=== PATIENT | female | born 1990 | race American Indian/Alaskan Native ===

== ENCOUNTER 2021-08-22 16:36 | Emergency (ER) | payer OTHER, SELFPAY ==
--- NOTE | 2021-08-22 | ECG_ITS ---
Test Reason : PALPITATIONS Blood Pressure : / mmHG Vent. Rate : 100 BPM Atrial Rate : 100 BPM P-R Int : 162 ms QRS Dur : 068 ms QT Int : 328 ms P-R-T Axes : 068 072 058 degrees QTc Int : 423 ms Normal sinus rhythm Possible Left atrial enlargement Borderline ECG No previous ECGs available Referred By: Generic ED Physician Electronically Signed By:Nik Lowery
[2021-08-22 16:40] VITALS: BP 142/88; PULSE 101; O2SAT 100
[2021-08-22 16:42] VITALS: BP 152/97; PULSE 104; RESP 20; O2SAT 100; BMI 25.8
[2021-08-22 17:27] LABS: COVID-19 Test Negative (Negative); IDNOW Serial# 55D5AD1C
--- NOTE | 2021-08-22 20:09 | ED_ITS ---
HPI - Anxiety General Chief Complaint: Anxiety Stated Complaint: PANIC ATTACK Time Seen by Provider: 08/22/21 20:08 Source: patient History of Present Illness HPI narrative: This is a 30-year-old male who woke up today after a nap and felt very anxious, felt like she could not breathe, had chest discomfort. She feels better now, no longer has any chest pain or shortness of breath. The patient admits heavy alcohol use last night. She had had a Coke this morning but denies any other heavy in use. This was about 2 hours prior to the onset of the anxiety symptoms. She has had similar attacks in the past and is scheduled to see her primary care physician, notes she will mention this to her primary care physician as she has had symptoms like this off and on for 3 years. She denies any acid reflux symptoms. She denies any new or unusual stress. She denies any vomiting or diarrhea Related Data Previous Rx's Medication Instructions Recorded lorazepam 1 mg tablet 1 mg PO BID PRN #14 tab 08/22/21 Allergies Allergy/AdvReac Type Severity Reaction Status Date / Time No Known Allergies Allergy Verified 08/22/21 20:13 Review of Systems Review of Systems: Yes all other systems are reviewed and are negative Constitutional: Constitutional: Reports as per HPI and Denies fever(s) Eyes: Eyes: Reports as per HPI and Reports no additional eye complaints ENT: Reports system reviewed and no additional complaints, except as documented, Reports as per HPI, Denies nasal congestion, Denies nasal discharge and Denies sore throat Cardiovascular: Cardiovascular: Reports as per HPI, Reports chest pain (Pressure, going to) and Reports dyspnea Respiratory: Respiratory: Reports as per HPI, Denies cough and Reports dyspnea Gastrointestinal: Gastrointestinal: Reports as per HPI, Denies abdominal pain, Denies diarrhea and Denies vomiting Genitourinary: Genitourinary: Reports as per HPI, Denies hematuria, Denies urinary frequency and Denies dysuria Musculoskeletal: Musculoskeletal: Reports no additional musculoskeletal complaints and Denies numbness Integumentary/Breasts: Skin/Breast: Reports as per HPI and Denies rash Neurologic: Denies numbness and Denies Sensory deficit (Neuro) Psychiatric: Psychiatric: Reports no additional psychiatric complaints and Reports as per HPI Endocrine: Endocrine: Reports no additional endocrine complaints and Reports as per HPI Hematologic/Lymphatic: Hematologic/Lymphatic: Reports no additional hematologic/lymphatic complaints, Reports as per HPI and Reports other (No peripheral edema) [facility] Past Medical History Medical History (Updated 08/22/21 @ 20:13 by Anastacio Mensah MD) No known health problems Social History Social History Advance Directives: No Advance Directives Information Provided: Yes Physical Exam Vital Signs: Vital Signs: Last Vital Signs Pulse 104 H 08/22/21 16:42 Resp 20 08/22/21 16:42 BP 152/97 H 08/22/21 16:42 Pulse Ox 100 08/22/21 16:42 BMI result Body Mass Index 25.8 Neuro: Sensory Exam: No Sensory deficit (Neuro) MDM - Anxiety MDM Narrative Medical decision making narrative: Patient with what sounds like panic attack symptoms today after waking up from nap. Patient has had this before. Patient had been drinking last night and had had a Coca-Cola this morning. She denies any other drug use. Patient had spontaneous resolution of symptoms with rest in the ED, prior to my evaluation. Patient had a normal exam and did not appear anxious when I saw her. Patient does have PCP follow-up. COVID test negative. Will prescribe lorazepam to use p.r.n.. Lab Data Labs: Lab Results 08/22/21 Range/Units 16:59 COVID-19 (LULÚ) Negative (Negative) COVID-19 Clin Com See Note Discharge Plan Discharge Clinical Impression: Acute anxiety Patient Disposition: Home, Self-Care Instructions: Panic Disorder (ED) Additional Instructions: Follow-up with your primary care physician as scheduled. Use lorazepam and as prescribed as needed for any recurrent anxiety/panic symptoms. Try to relieve stress by getting regular exercise. Prescriptions: New lorazepam 1 mg tablet 1 mg PO BID PRN (Reason: anxiety) Qty: 14 RF: 0
== END 2021-08-22 21:08 | disposition home or self-care (01) ==
PROVIDERS: Emergency Provider Emergency Medicine; PCP Internal Medicine
DX: F41.0 Panic disorder [episodic paroxysmal anxiety] (principal); F41.1 Generalized anxiety disorder; F43.0 Acute stress reaction; Z20.822 Contact with and (suspected) exposure to COVID-19; Z79.899 Other long term (current) drug therapy
CPT/HCPCS: 87635; 93005; 99284

== ENCOUNTER 2021-12-09 12:45 | Outpatient (REF) | payer OTHER, SELFPAY ==
--- NOTE | ~2021-12-09 | US_ITS ---
EXAMINATION: US DIAGNOSTIC ULTRASOUND BREAST, RIGHT CLINICAL INFORMATION: Age 30. No prior breast imaging. Mastodynia for 1.5 years. No palpable mass or discharge. Implant present for approximately 5 years. Piercing present approximately 4 years. COMPARISON: None. TECHNIQUE: Ultrasound of the right breast is performed using grayscale imaging and color Doppler without and with harmonics. Imaging is targeted to the area of clinical concern, predominantly 7:00 through 12:00 position. FINDINGS: There is no focal suspicious finding. There is no cystic or solid mass, architectural abnormality, duct ectasia, or edema in the soft tissue planes. There is an implant present with normal appearing smooth undulating contours. Results are discussed with the patient at time of visit. US/US breast RT limited IMPRESSION: -Normal study. ASSESSMENT: BI-RADS 1: Negative RECOMMENDATION: 1. Patient should be managed based on the clinical impression. If further assessment of the bilateral implants is clinically indicated, this could be performed with MRI. 2. Otherwise, routine annual screening mammography, beginning age 40, or earlier as clinical risk factors warrant. This patient's information was entered into a reminder system with a target due date for their next mammogram.
== END 2021-12-09 12:46 | disposition home or self-care (01) ==
LOC: HO.MAMMO 12:45
PROVIDERS: Visit Provider Internal Medicine
DX: N64.4 Mastodynia (principal)
CPT/HCPCS: 76642

== ENCOUNTER → 2022-03-10 10:39 | Outpatient (BNVA) | payer OTHER, SELFPAY | PROVIDERS: PCP Internal Medicine; Referring Provider Internal Medicine; Visit Provider Internal Medicine | DX: R00.2 Palpitations (principal); R06.02 Shortness of breath; R07.2 Precordial pain | CPT/HCPCS: 93005; 99202 ==

== ENCOUNTER → 2022-03-18 10:39 | Outpatient (REF) | payer OTHER, SELFPAY ==
--- NOTE | 2022-03-18 10:38 | CA_ITS ---
Acquisition Time: 2022-03-18 10:41:02 Total Exercise Time: 00:09:51 Test Indications: CP, SOB Medications: SEE CHART Protocol: JOSE ELIAS Max HR: 184 BPM 96% of Pred: 190 BPM Max BP: 132/072 mmHG Max Work Load: 11.4 METS Exercise stress test with exercise 9 min 51 sec of Jose Elias protocol, achieving 96% MPHR, 11.4 METS with report of 5/10 anterior chest pressure ( different from reports of chest pain that prompted test to be ordered), mild sob and fatigue with request to stop, without arrythmia, with normotensive response to exercise, without EKG changes meeting criteria for ischemia. In recovery she reported resolution of her chest pressure and sob. Test reviewed with Dr Gamez. Referred By: Columba Park Overread By: LARA LOUIE
[2022-03-18 11:45] LABS: MANUAL DIFF FLAG NO
[2022-03-18 12:21] LABS: Basophils Percent Auto 0.5 % (0-2); Eosinophils Percent Auto 0.1 % (0-4); Hematocrit 43.1 % (37.0-47.0); Hemoglobin 14.4 g/dl (12.0-16.0); Imm Gran Abs Auto 0.02 X10*3/uL (0.00-0.03); Imm Gran Pct Auto 0.3 % (0.0-0.4); Lymphocytes Absolute Auto 1.9 X10*3/uL (1.2-4.9); Lymphocytes Percent Auto 24.6 % (20-40); Mean Corpuscular HGB Conc 33.4 g/dl (31.0-35.0); Mean Corpuscular Hemoglobin 31.9 pg (27.0-33.0); Mean Corpuscular Volume 95.6 fL (80.0-98.0); Mean Platelet Volume 10.6 fL (9.4-12.3); Monocytes Absolute Auto 0.5 X10*3/uL (0.1-1.2); Neutrophils Absolute Auto 5.3 x10*3/uL (2.0-8.3); Neutrophils Percent Auto 68.5 % (45-73); Platelet Count 229 X10*3/uL (160-400); Red Blood Count 4.51 X10*6/uL (4.20-5.50); Red Cell Distribution Width 12.3 % (11.0-16.0); White Blood Count 7.7 X10*3/uL (4.8-10.8)
[2022-03-18 12:57] LABS: Alanine Aminotransferase 11 U/L (0-31); Albumin Level 4.7 g/dL (3.5-5.0); Alkaline Phosphatase 44 U/L (39-117); Anion Gap 18 (12-20); Aspartate Amino Transferase 21 U/L (5-31); Bilirubin Total 1.2 mg/dL (0.0-1.0); Blood Urea Nitrogen 7 mg/dL (9-16); Carbon Dioxide 24 mmol/L (22-29); Chloride 100 mmol/L (96-108); Cholesterol 152 mg/dL; Estimated Glomerular Filt Rate > 60; Glucose Fasting 82 mg/dL (60-99); HDL Cholesterol 84 mg/dL; LDL Cholesterol Calculated 60 mg/dl; Potassium 4.7 mmol/L (3.3-5.1); Sodium 137 mmol/L (135-145); Total Protein 7.7 g/dL (6.5-8.0); Triglycerides 43 mg/dL
[2022-03-18 13:07] LABS: Thyroid Stimulating Hormone 0.85 uIU/mL (0.32-4.0)
== END ==
LOC: HO.CARD 10:39
PROVIDERS: PCP Internal Medicine; Visit Provider Internal Medicine
DX: R07.2 Precordial pain (principal); R00.2 Palpitations
CPT/HCPCS: 36415; 80053; 80061; 84443; 85025; 93017

== ENCOUNTER → 2022-04-19 11:03 | Outpatient (REF) | payer OTHER, SELFPAY ==
--- NOTE | ~2022-04-19 | XR_ITS ---
EXAMINATION: XR chest 2V CLINICAL INFORMATION: Reason for Exam R06.02 - Shortness of breath COMPARISON: None TECHNIQUE: 2 views of the chest FINDINGS: Clear lungs. No pneumothorax or pleural effusion. Normal cardiomediastinal silhouette. XR/XR chest 2V Impression: * Clear lungs.
--- NOTE | 2022-04-19 13:08 | CA_ITS ---
Transthoracic Echocardiogram Patient (Last, First, Middle): Sydnee Larson, Gender: Female Date of : 1990 Age: 31 Procedure Date: 04/19/2022 Procedure Type: Transthoracic Echocardiogram Location: OP Height: 170.18 cm Weight: 76.66 kg BSA: 1.88 m2 Heart Rate: 54 bpm BP: 100 / 65 mmHg Information Systems Security Analyst: LINK Encarnacion MD: Eliezer Gamez MD Study Abroad Advisor: Inocencio Kaiser MD Symptoms: R06.02 - Shortness of breath Study Quality: Adequate ECG Rhythm: Bradycardia Conclusions: - Normal study Findings Left Ventricle Normal left ventricular size, thickness, and systolic function. The visually estimated ejection fraction is between 60-65%. Spectral Doppler is indicative of a normal filling pattern. Right Ventricle Normal right ventricular cavity size and systolic function. Atria Both atria are normal in size. There is no evidence of interatrial shunt. Aortic Valve Normal aortic valve structure and function. There is no aortic valve stenosis. There is no aortic valve regurgitation. Mitral Valve Normal mitral valve structure and function. There is trace mitral valve regurgitation. There is no mitral valve stenosis. Pulmonic Valve The pulmonic valve is likely normal. Tricuspid Valve Normal tricuspid valve structure. There is trace tricuspid valve regurgitation. The right ventricular systolic pressure is normal. The right ventricular systolic pressure is 13 mmHg. Normal right atrial pressure. There is no evidence of pulmonary hypertension. Great Vessels All visible segments of the aorta are normal in size. The pulmonary artery was not well visualized. Venous The inferior vena cava is normal in size and collapses greater than 50% with inspiration. Pericardium/Pleural There is no evidence of pericardial effusion. Prior Study Comparison No prior study available for comparison. Measurements 2D Linear Measurements IVSd: 0.95 0.6-0.9/0.6-1.0 cm LVIDd: 4.79 3.9-5.3/4.2-5.9 cm LVIDd Index: 2.55 2.4-3.2/2.2-3.1 cm/m2 LVIDs: 3.06 2.0-3.6 cm LVPWd: 0.98 0.7-1.1 cm LA Diam: 2.80 2.7-3.8/3.0-4.0 cm LAIDs Index: 1.49 1.5-2.3 cm/m2 LV Mass: 200.04 67-162/88-224 g LV Mass Index: 106.40 43-95/49-115 g/m2 LVOT Diam: 1.90 3.0+(-)1.3 cm 2D Systolic Function EF 4C: 61.80 >55% EF 2C: 70.10 >55% EF BiP: 65.70 >55% Mitral Valve MV Pk E: 0.89 MV PK A: 0.62 MV Decel Time: 243.00 E/A: 1.40 E'Lateral: 12.50 E'Medial: 8.81 E/E' Med: 10.10 E/E' Lat: 7.10 PHT: 71.00 MVA PHT: 3.10 Decel [place]: 3.67 Aortic Valve AoV Pk Randolph: 1.26 AoV Mn Randolph: 0.90 AoV VTI: 0.29 AoV Pk Grad: 6.00 Aov Mn Grad: 4.00 LIONEL Cont.VTI: 2.19 LVOT LVOT Pk Randolph: 1.08 LVOT Mn Randolph: 0.70 LVOT VTI: 0.23 LVOT Pk Grad: 5.00 LVOT Mn Grad: 2.00 LVOT Diam: 1.90 LVOT Area: 2.84 Diastolic Function MV Pk E: 0.89 MV Pk A: 0.62 E/A: 1.40 E'Medial: 8.81 E/E' Med: 10.10 E' Laterial: 12.50 E/E' Lat: 7.10 Right Ventricle TAPSE (mm): 20.80 TVS' Randolph: 12.70 Tricuspid Valve TR Pk Randolph: 1.61 TR Pk Grad: 10.00 RA Press: 3.00 RVSP: 13.00 Great Vessels Aorta Sinus of Valsalva: 2.80 2.0-3.5 cm Ao Asc: 2.80 2.1-3.4 cm Pulmonary Valve PV Pk Randolph: 0.99 Peak PV Grad: 4.00 Updated in Other Vendor System with Status of Final Inocencio Kaiser MD electronically signed on 04/20/2022 8:57:47 AM with status of Final
== END ==
LOC: HO.CARD 11:03
PROVIDERS: Absent Provider Internal Medicine; PCP Internal Medicine; Visit Provider Internal Medicine
DX: R06.02 Shortness of breath (principal)
CPT/HCPCS: 71046; 93306

== ENCOUNTER 2023-06-28 07:48 | Outpatient (AMB) | payer OTHER, SELFPAY ==
--- NOTE | 2023-06-28 07:56 | MHC.PC.OV ---
Vital Signs 06/28/23 07:57 Height 5 ft 7 in Weight 174 lb BMI 27.2 BP 110/72 Blood Pressure Location Lt brachial Position Sitting Intake Visit Reasons: Lump R breast Intake Note: Patient here c/o right breast lump, low back pain Embedded Systems Software Developer Required: No Accompanied by: Self / Same As Patient Allergies No Known Allergies Allergy (Verified 06/28/23 08:05) Medication List - Last Reconciled 06/28/23 by Columba Park MD No Known Home Meds Tobacco use date assessed: 06/28/23 Dental Screening Dental Screen Date: 06/28/23 Did you have a dental visit in the last 12 months?: Yes Did you have a dental problem in the last 6 months where you did not have access to dental care?: No Was dental information given to patient?: Patient has dentist HPI HPI Comments History of Present Illness Details This is a 32-year-old female complains right breast lump at 10:00 o'clock that she noticed about 2-3 weeks ago. She has breast implants and had a right breast ultrasound at the same location last year which was benign. No nipple discharge or retraction. No breast skin changes. I will order ultrasound and mammogram. She also complains of back pain that involves both size and located above lumbar spine. Pain started 2 weeks ago and denies radiation to the legs. No leg numbness or tingling. No fever, bowel or bladder incontinence. [facility] Medical History (Updated 06/28/23 @ 08:51 by Columba Park MD) Breast pain, right Palpitations Precordial chest pain Physical exam Surgical History H/O breast augmentation History of cosmetic surgery History of Family History Mother No problems noted. Father Hypertension Housing: Condominium Alcohol intake: current Alcohol intake frequency: a few times a month Alcohol type: hard liquor Patient Tobacco Use Status: Never used Tobacco Tobacco use type: Cigarette e-Cigarette/Vaping Use: Currently Using Second Hand Smoke Exposure: No service: No Current occupational status: employed Current occupational exposures/hazards: No Cognitive needs: No Hearing needs: No Vision needs: No Questionnaire PHQ-9 Over the last 2 weeks, how often have you been bothered by any of the following problems? 1. Little interest or pleasure in doing things: not at all 2. Feeling down, depressed, or hopeless: not at all 3. Trouble falling or staying asleep, or sleeping too much: not at all 4. Feeling tired or having little energy: not at all 5. Poor appetite or overeating: not at all 6. Feeling bad about yourself - or that you are a failure or have let yourself or your family down: not at all 7. Trouble concentrating on things, such as reading the newspaper or watching television: not at all 8. Moving or speaking so slowly that other people could have noticed. Or the opposite - being so fidgety or restless that you have been moving around a lot more than usual: not at all 9. Thoughts that you would be better off or of hurting yourself in some way: not at all Total score: 0 Depression Screening Interpretation: Negative Depression Screening Done: Yes 53299 - PHQ-9 Billing: Yes Source: Developed by Drs. Regino Christina, Zena Daily, Boone Chapman and colleagues, with an educational sayda from [employer]. Thrive Questionnaire Date Thrive assessed: 06/28/23 I am a: Patient What is your living situation today?: I have a steady place to live Within the past 12 months, did the food you bought not last and you didn't have the money to get more?: Never true Within the past 12 months, did you worry whether your food would run out before you got money to buy more?: Never true Do you have trouble paying for medicines?: No Do you have trouble getting transportation to medical appointments?: No Do you have trouble paying your heating and electricity bill?: No Do you have trouble taking care of your child, family member or friend?: No Do you have trouble with day-to-day activities such as bathing, preparing meals, shopping, managing finances, etc.?: No Are you currently unemployed and looking for a job?: No Are you interested in more education?: No Please select the resources that you would like help with: None Currently or been in a relationship where the following occur: no concerns reported AUDIT C Alcohol Use Questionnaire (AUDIT-C) 1. How often do you have a drink containing alcohol?: Monthly or less 2. How many drinks containing alcohol do you have on a typical day when you are drinking?: 1 or 2 3. How often do you have six or more drinks on one occasion?: Never Total Score: 1 Score Reviewed/Action Taken: No KENDALL-7 AMB Questionnaire KENDALL-7 Date KENDALL - 7 assessed: 06/28/23 Feeling nervous, anxious, or on edge: 0 = Not at all Not being able to stop or control worryin = Not at all Worrying too much about different things: 0 = Not at all Trouble relaxin = Not at all Being so restless that it is hard to sit still: 0 = Not at all Becoming easily annoyed or irritable: 0 = Not at all Feeling afraid as if something awful might happen: 0 = Not at all Total KENDALL-7 score (0-4 normal; 5-9 mild; 10-14 moderate; 15-21 severe): 0 Source: Developed by Drs. Regino Christina, Zena Daily, Boone Chapman and colleagues, with an educational sayda from [employer]. KENDALL-7 Assessment Billing KENDALL-7 Assessment Tool: KENDALL-7 Assessment 57429 Review of Systems Const All systems reviewed & are unremarkable except as noted in HPI and below Eyes Reports no additional complaints, Denies change in vision and Denies other visual disturbances Card Denies chest pain at rest, Denies chest pain with activity, Denies edema, Denies irregular heart rhythm, Denies claudication, Denies dyspnea, Denies dyspnea on exertion, Denies orthopnea, Denies paroxysmal nocturnal dyspnea and Denies slow heart rate Resp Denies cough, Denies dyspnea and Denies dyspnea on exertion GI Denies abdominal pain, Denies change in bowel habits, Denies excessive flatus, Denies nausea and Denies vomiting Denies urinary incontinence, Denies urinary hesitancy and Denies urinary urgency Musc Denies atrophy, Denies deformity and Denies limited range of motion Skin/Breast Reports breast mass Physical exam (Primary Care) Vital Signs: Last Vital Signs BP 110/72 06/28/23 07:57 BMI result Body Mass Index 27.2 Tobacco/Smoking Status: Tobacco use Status Tobacco use date assessed 06/28/23 06/28/23 08:01 Patient Tobacco Use Status Never used Tobacco 06/28/23 08:01 Tobacco use type Cigarette 06/28/23 08:01 e-Cigarette/Vaping Use Currently Using 06/28/23 08:01 PHQ-9: PHQ-9 Score PHQ-9: Total score 0 06/28/23 08:07 Depression Screening Interpretation: Negative Thrive Assessment: Date of Thrive Assessment Date Thrive assessed 06/28/23 06/28/23 08:01 Currently or been in a relationship where the following occur: no concerns reported Eyes General: appearance normal, both eyes and all related structures Eyelids: Yes eyelids normal Conjunctivae: conjunctivae normal Neck Neck: Yes normal visual inspection and Yes supple Chest Breast/axilla inspection: normal inspection of the breasts Breast/axilla palpation: abnormal palpation of the breast (Right breast mass at 10:00 o'clock) right mass Resp Effort & Inspection: normal respiratory effort Auscultation: clear to auscultation bilaterally Cardio Jugular venous distension: no JVD Rate: regular rate Rhythm: regular rhythm Heart sounds: S1 normal heart sound present and S2 normal heart sound present Extrem General: Yes full ROM Office Procedures Flu Questionnaire Does the patient have a severe egg allergy?: No Immunizations flu vacc [id number] 6mos up(PF) 60 mcg(15 mcgx4)/0.5 mL IM syringe Performing Provider: Columba Park MD [facility] Documented (not given) by: ALENA Koo on 06/28/23 08:02 Reason Not Given: Patient Refused Assessment and Plan Assessment & Plan (1) Lump of right breast: Comment: At 10 o'clock Code(s): N63.10 - Unspecified lump in the right breast, unspecified quadrant Qualifiers: Breast mass location: upper outer quadrant Qualified Code(s): N63.11 - Unspecified lump in the right breast, upper outer quadrant Plan: Ultrasound of the breast and mammogram ordered. (2) Back pain: Code(s): M54.9 - Dorsalgia, unspecified Qualifiers: Back pain location: low back pain Chronicity: acute Back pain laterality: bilateral Sciatica presence: without sciatica Qualified Code(s): M54.50 - Low back pain, unspecified Plan: Start nabumetone as needed. Orders: Orders US breast RT complete Today N63.10 - Unspecified lump in the right breast, unspecified quadrant Influenza [id number] Immunization Today Z23 - Encounter for immunization MM diagnostic mammo BI Today N63.10 - Unspecified lump in the right breast, unspecified quadrant Medications: New nabumetone 750 mg PO BID 5 days 10 tabs 0RF Coding Level of Care Code Est Pt Level 3 (29158) Diagnoses Mass of upper outer quadrant of right breast N63.11 Breast mass location: upper outer quadrant Acute bilateral low back pain without sciatica M54.50 Back pain location: low back pain Chronicity: acute Back pain laterality: bilateral Sciatica presence: without sciatica Additional Codes KENDALL-7 Assessment Billing - KENDALL-7 Assessment Tool: KENDALL-7 Assessment 59528 ([id number]) Time Spent (min) 19
[2023-06-28 07:57] VITALS: BP 110/72; BMI 27.2
== END 2023-06-28 08:14 | disposition home or self-care (01) ==
LOC: HO.HMGH 07:48
PROVIDERS: PCP Internal Medicine; Visit Provider Internal Medicine
DX: N63.11 Unspecified lump in the right breast, upper outer quadrant (principal); M54.50 Low back pain, unspecified
CPT/HCPCS: 99213

== ENCOUNTER 2023-07-10 09:46 | Outpatient (REF) | payer OTHER, SELFPAY ==
--- NOTE | ~2023-07-10 | US_ITS ---
EXAMINATION: MM DIAGNOSTIC DIGITAL BREAST TOMOSYNTHESIS, BILATERAL US BREAST LIMITED, RIGHT CLINICAL INFORMATION: Palpable focus with associated pain 10:00 axis right breast. New bilateral implants. COMPARISON: Mammography: No prior available. Baseline exam. TECHNIQUE: Digital mammography is performed in craniocaudal and mediolateral oblique views. Digital breast tomosynthesis is performed in implant-displaced craniocaudal and implant-displaced mediolateral oblique views. Synthesized 2D images are generated from the tomosynthesis. Computer-aided detection (CAD) is performed for this exam. FINDINGS: There are scattered areas of fibroglandular density (ACR BI-RADS breast composition Category b). The implant contours are unremarkable. There are no significant masses, abnormal calcifications, or other abnormalities. No mass or other abnormality is identified subjacent to the BB marker indicating the area of palpable abnormality and pain in the right breast at 10:00. ULTRASOUND: CLINICAL INFORMATION: Palpable focus with associated pain 10:00 axis right breast. New bilateral implants. COMPARISON: None contributory, 12/09/2021. TECHNIQUE: Targeted sonographic evaluation was performed using a high frequency linear transducer. Attention was given to the 10:00 axis right breast. Selected archived documentation. FINDINGS: RIGHT BREAST: There is a mixture of fatty and fibroglandular tissue. No suspicious mass is seen. There is no pathologic acoustic shadowing. There is no cystic abnormality. Implant contours appear normal. No sonographic correlate to the focus of palpable concern. US/US breast RT limited mamm only IMPRESSION: There are no findings suspicious for malignancy in either breast. Implants appear intact and unremarkable. There is no mammographic or sonographic correlate to the region of palpable abnormality and pain in the right breast at the 10:00 axis. Recommend clinical management. Otherwise, recommend the patient resume routine screening mammography at age 40. OVERALL ASSESSMENT: Mammography: BI-RADS 1 - Negative Ultrasound: BI-RADS 1 - Negative RECOMMENDATION: Mammo at 40 or earlier if clinically needed (accession [id number]), 1 year F/U (accession [id number]) This patient's information was entered into a reminder system with a target due date for their next mammogram.
== END 2023-07-10 09:47 | disposition home or self-care (01) ==
LOC: HO.MAMMO 09:46
PROVIDERS: PCP Internal Medicine; Visit Provider Internal Medicine
DX: N63.11 Unspecified lump in the right breast, upper outer quadrant (principal)
CPT/HCPCS: 76642; 77062; 77066

== ENCOUNTER → 2023-07-10 10:30 | Outpatient (BNV) | payer OTHER, SELFPAY | PROVIDERS: PCP Internal Medicine; Visit Provider Radiology Diagnostic Radiology | DX: N64.4 Mastodynia (principal); R92.323 Mammographic fibroglandular density, bilateral breasts; R92.311 Mammographic fatty tissue density, right breast | CPT/HCPCS: 76642; 77062; 77066 ==

== ENCOUNTER 2023-12-18 08:33 | Outpatient (AMB) | payer OTHER, SELFPAY ==
--- NOTE | 2023-12-18 08:34 | A.OFFPC_ITS ---
Vital Signs 12/18/23 08:35 Height 5 ft 7 in Weight 187 lb BMI 29.3 BP 118/64 Blood Pressure Location Lt brachial Position Sitting Intake Visit Reasons: PE Intake Note: Patient here for a physical exam Power Superintendent Required: No Accompanied by: Self / Same As Patient Allergies No Known Allergies Allergy (Verified 12/18/23 08:47) Medication List - Last Reconciled 12/18/23 by Columba Park MD No Known Home Meds Tobacco use date assessed: 12/18/23 Dental Screening Dental Screen Date: 12/18/23 Did you have a dental visit in the last 12 months?: Yes Did you have a dental problem in the last 6 months where you did not have access to dental care?: No Was dental information given to patient?: Patient has dentist HPI HPI Comments History of Present Illness Details This is a 33-year-old female that comes for her physical exam. Last Pap smear was last week at [facility] and results are still pending. No chest pain. Some shortness of breath occasionally that happens at rest. No change in bowel or bladder habits. [facility] Medical History Breast pain, right Palpitations Precordial chest pain Physical exam Surgical History H/O breast augmentation History of cosmetic surgery History of Family History Mother No problems noted. Father Hypertension Social History Housing: Condominium Alcohol intake: current Alcohol intake frequency: a few times a month Alcohol type: hard liquor Patient Tobacco Use Status: Never used Tobacco Tobacco use type: Cigarette e-Cigarette/Vaping Use: Currently Using Second Hand Smoke Exposure: No service: No Current occupational status: employed Current occupational exposures/hazards: No Cognitive needs: No Hearing needs: No Vision needs: Yes Questionnaire PHQ-9 Over the last 2 weeks, how often have you been bothered by any of the following problems? 1. Little interest or pleasure in doing things: not at all 2. Feeling down, depressed, or hopeless: not at all 3. Trouble falling or staying asleep, or sleeping too much: not at all 4. Feeling tired or having little energy: not at all 5. Poor appetite or overeating: not at all 6. Feeling bad about yourself - or that you are a failure or have let yourself or your family down: not at all 7. Trouble concentrating on things, such as reading the newspaper or watching television: not at all 8. Moving or speaking so slowly that other people could have noticed. Or the opposite - being so fidgety or restless that you have been moving around a lot more than usual: not at all 9. Thoughts that you would be better off or of hurting yourself in some way: not at all Total score: 0 Depression Screening Interpretation: Negative Depression Screening Done: Yes 62338 - PHQ-9 Billing: Yes Source: Developed by Drs. Regino Christina, Zena Daily, Boone Chapman and colleagues, with an educational sayda from [employer]. Thrive Questionnaire Date Thrive assessed: 12/18/23 I am a: Patient What is your living situation today?: I have a steady place to live Within the past 12 months, did the food you bought not last and you didn't have the money to get more?: Never true Within the past 12 months, did you worry whether your food would run out before you got money to buy more?: Never true Do you have trouble paying for medicines?: No Do you have trouble getting transportation to medical appointments?: No Do you have trouble paying your heating and electricity bill?: No Do you have trouble taking care of your child, family member or friend?: No Do you have trouble with day-to-day activities such as bathing, preparing meals, shopping, managing finances, etc.?: No Are you currently unemployed and looking for a job?: No Are you interested in more education?: No Please select the resources that you would like help with: None Currently or been in a relationship where the following occur: no concerns reported THRIVE Score: 0 AUDIT C Alcohol Use Questionnaire (AUDIT-C) 1. How often do you have a drink containing alcohol?: Monthly or less 2. How many drinks containing alcohol do you have on a typical day when you are drinking?: 1 or 2 3. How often do you have six or more drinks on one occasion?: Never Total Score: 1 Score Reviewed/Action Taken: No KENDALL-7 AMB Questionnaire KENDALL-7 Date KENDALL - 7 assessed: 12/18/23 Feeling nervous, anxious, or on edge: 0 = Not at all Not being able to stop or control worryin = Not at all Worrying too much about different things: 0 = Not at all Trouble relaxin = Not at all Being so restless that it is hard to sit still: 0 = Not at all Becoming easily annoyed or irritable: 0 = Not at all Feeling afraid as if something awful might happen: 0 = Not at all Total KENDALL-7 score (0-4 normal; 5-9 mild; 10-14 moderate; 15-21 severe): 0 Source: Developed by Drs. Regino Christina, Zena Daily, Boone Chapman and colleagues, with an educational sayda from [employer]. KENDALL-7 Assessment Billing KENDALL-7 Assessment Tool: KENDALL-7 Assessment 61841 Review of Systems Const All systems reviewed & are unremarkable except as noted in HPI and below Eyes Reports no additional complaints, Denies change in vision and Denies other visual disturbances Card Denies chest pain at rest, Denies chest pain with activity, Denies edema, Denies irregular heart rhythm, Denies claudication, Reports dyspnea, Denies dyspnea on exertion, Denies orthopnea, Denies paroxysmal nocturnal dyspnea and Denies slow heart rate Resp Denies cough, Reports dyspnea and Denies dyspnea on exertion GI Denies abdominal pain, Denies change in bowel habits, Denies excessive flatus, Denies nausea and Denies vomiting Denies urinary incontinence, Denies urinary hesitancy and Denies urinary urgency Physical exam (Primary Care) Vital Signs: Last Vital Signs BP 118/64 12/18/23 08:35 BMI result Body Mass Index 29.3 Tobacco/Smoking Status: Tobacco use Status Tobacco use date assessed 12/18/23 12/18/23 08:40 Patient Tobacco Use Status Never used Tobacco 12/18/23 08:40 Tobacco use type Cigarette 12/18/23 08:40 e-Cigarette/Vaping Use Currently Using 12/18/23 08:40 PHQ-9: PHQ-9 Score PHQ-9: Total score 0 12/18/23 08:40 Depression Screening Interpretation: Negative Thrive Assessment: Date of Thrive Assessment Date Thrive assessed 12/18/23 12/18/23 08:40 Currently or been in a relationship where the following occur: no concerns reported Const Orientation/consciousness: patient oriented x3 HENMT Head: Yes normal to inspection, Yes normocephalic and Yes atraumatic Ears: external ears normal General nose exam: Normal external nose present and No nasal discharge present Face and sinus: Yes sinuses nontender Mouth: lip normal Eyes General: appearance normal, both eyes and all related structures Eyelids: Yes eyelids normal Conjunctivae: conjunctivae normal Neck Neck: Yes normal visual inspection and Yes supple Resp Effort & Inspection: normal respiratory effort Auscultation: clear to auscultation bilaterally Cardio Jugular venous distension: no JVD Rate: regular rate Rhythm: regular rhythm Heart sounds: S1 normal heart sound present and S2 normal heart sound present GI Inspection: Yes normal to inspection Palpation (GI): Soft to palpation and nontender Auscultation: normal bowel sounds Skin General skin exam: no rashes or lesions noted Neuro General: patient oriented x3 and no focal motor deficits Extrem General: Yes full ROM Psych Appearance: grossly normal Assessment and Plan Assessment & Plan (1) Physical exam: Code(s): Z00.00 - Encounter for general adult medical examination without abnormal findin gs Plan: Repeat in a year. Orders: Orders XR chest 2V Today R06.00 - Dyspnea, unspecified PFT pulmonary function test Today R06.00 - Dyspnea, unspecified Coding Level of Care Code Est Pt Prev Care 18-39y(30941) Diagnoses Physical exam Z00.00 Additional Codes KENDALL-7 Assessment Billing - KENDALL-7 Assessment Tool: KENDALL-7 Assessment 98120 ([id number]) Time Spent (min) 30
[2023-12-18 08:35] VITALS: BP 118/64; BMI 29.3
== END 2023-12-18 09:42 | disposition home or self-care (01) ==
PROVIDERS: PCP Internal Medicine; Visit Provider Internal Medicine
DX: Z00.00 Encounter for general adult medical examination without abnormal findings (principal)
CPT/HCPCS: 99395

== ENCOUNTER → 2024-05-28 10:22 | Outpatient (BNVA) | payer SELFPAY | PROVIDERS: PCP Internal Medicine; Visit Provider Registered Nurse | DX: Z02.79 Encounter for issue of other medical certificate (principal) ==

== ENCOUNTER 2024-06-06 12:40 | Outpatient (REF) | payer OTHER, SELFPAY ==
[2024-06-06 09:32] VITALS: PULSE 83; RESP 16; O2SAT 100
--- NOTE | 2024-06-06 12:58 | PFT_ITS ---
Indication: Dyspnea Spirometry [FEV1 to FVC 91%; FEV1 3.33 L; FVC 3.65 L. no significant response to bronchodilators noted. Maximum voluntary ventilation 87% predicted] Lung Volumes [Total lung capacity 74% predicted] Diffusion Capacity [DLCO 96% predicted] Comparisons [None] Interpretation [No obstructive ventilatory defects. No significant response to bronchodilators noted. The patient does have a mild restrictive ventilatory defect consistent with mild restrictive lung disease. Diffusing capacity is within normal limits. Iimaging studies may be warranted. Clinical correlation warranted.] MTDD
== END 2024-06-06 12:41 | disposition home or self-care (01) ==
LOC: HO.RESP 12:40
PROVIDERS: PCP Internal Medicine; Visit Provider Internal Medicine
DX: R06.00 Dyspnea, unspecified (principal)
CPT/HCPCS: 94010; 94640; 94727; 94729

== ENCOUNTER → 2024-06-06 12:58 | Outpatient (BNV) | payer OTHER, SELFPAY | PROVIDERS: PCP Internal Medicine; Visit Provider Hospitalist | DX: R06.00 Dyspnea, unspecified (principal) | CPT/HCPCS: 94060; 94727; 94729 ==

== ENCOUNTER 2024-07-11 14:42 | Outpatient (AMB) | payer OTHER, SELFPAY ==
--- NOTE | 2024-07-11 14:45 | MHC.PC.OV ---
Vital Signs 07/11/24 14:46 Height 5 ft 7 in Weight 184 lb BMI 28.8 BP 120/70 Blood Pressure Location Lt brachial Position Sitting Intake Visit Reasons: discuss results Intake Note: Patient here to discuss PFT results Night Court Magistrate Required: No Accompanied by: Self / Same As Patient Allergies No Known Allergies Allergy (Verified 07/11/24 14:55) Medication List - Last Reconciled 07/11/24 by Columba Park MD No Known Home Meds Tobacco use date assessed: 12/18/23 Dental Screening Dental Screen Date: 12/18/23 HPI HPI Comments History of Present Illness Details The patient is a 33-year-old female presenting with dyspnea. The patient reports experiencing difficulty breathing and shortness of breath that results in easy fatigability. These symptoms have been persistent for an extended period. A recent pulmonary function test conducted on June 06 indicated that results were close to normal, although respiratory effort had been short, as observed during testing. The patient noted an improvement in breathing following administration of a bronchodilator during the test, suggesting possible mild asthma. No history of medication use for asthma was reported, and the patient does not use inhalers. There is no history of allergies to medications, and she occasionally engages in vaping using hookah-based products containing nicotine, but not daily. The patient consumes alcohol a couple of times per month and engages in regular exercise by walking. [facility] Medical History Breast pain, right Palpitations Precordial chest pain Physical exam Surgical History H/O breast augmentation History of cosmetic surgery History of Family History Mother No problems noted. Father Hypertension Social History Housing: Condominium Alcohol intake: current Alcohol intake frequency: a few times a month Alcohol type: hard liquor Patient Tobacco Use Status: Never used Tobacco Tobacco use type: Cigarette e-Cigarette/Vaping Use: Currently Using Second Hand Smoke Exposure: No service: No Current occupational status: employed Current occupational exposures/hazards: No Cognitive needs: No Hearing needs: No Vision needs: Yes Questionnaire Thrive Questionnaire Date Thrive assessed: 12/18/23 KENDALL-7 AMB Questionnaire KENDALL-7 Date KENDALL - 7 assessed: 12/18/23 Source: Developed by Drs. Regino Christina, Zena Daily, Boone Chapman and colleagues, with an educational sayda from [employer]. Review of Systems Const All systems reviewed & are unremarkable except as noted in HPI and below Card Denies chest pain at rest, Denies chest pain with activity, Denies edema, Denies irregular heart rhythm, Denies claudication, Denies dyspnea, Denies dyspnea on exertion, Denies orthopnea, Denies paroxysmal nocturnal dyspnea and Denies slow heart rate Resp Denies cough, Denies dyspnea and Denies dyspnea on exertion GI Denies abdominal pain, Denies change in bowel habits, Denies excessive flatus, Denies nausea and Denies vomiting Denies urinary incontinence, Denies urinary hesitancy and Denies urinary urgency Neuro Denies behavioral changes and Denies lack of coordination Psych Denies behavioral changes Physical exam (Primary Care) Vital Signs: Last Vital Signs BP 120/70 07/11/24 14:46 BMI result Body Mass Index 28.8 Tobacco/Smoking Status: Tobacco use Status Tobacco use date assessed 12/18/23 07/11/24 14:48 Patient Tobacco Use Status Never used Tobacco 07/11/24 14:48 Tobacco use type Cigarette 07/11/24 14:48 e-Cigarette/Vaping Use Currently Using 07/11/24 14:48 Thrive Assessment: Date of Thrive Assessment Date Thrive assessed 12/18/23 07/11/24 14:48 Resp Effort & Inspection: normal respiratory effort Auscultation: clear to auscultation bilaterally Cardio Jugular venous distension: no JVD Rate: regular rate Rhythm: regular rhythm Heart sounds: S1 normal heart sound present and S2 normal heart sound present Extrem General: Yes full ROM Office Procedures Flu Questionnaire Does the patient have a severe egg allergy?: No Immunizations Fluarix Triv [id number] (PF) 45 mcg (15 mcg x 3)/0.5 mL IM syringe Performing Provider: Columba Park MD Performing [facility] [place] [facility] Documented (not given) by: ALENA Koo on 07/11/24 14:55 Reason Not Given: Patient Refused Coding Level of Care Code Est Pt Level 3 (97663) Complex EM visit Add On G2211 Diagnoses Asthma J45.909 Time Spent (min) 19 Assessment & Plan Assessment & Plan (1) Asthma: Code(s): J45.909 - Unspecified asthma, uncomplicated Category: Medical Plan - Suspected minimal asthma: Prescribe an inhaler for symptom management. Refer to a book publisher for further evaluation and confirmation. Patient was informed and verbally consented to the use of an ambient scribe for clinic note documentation during this visit. I discussed the pulmonary function test results with the patient, which indicated near-normal respiratory function with improvement post-bronchodilator, suggesting a potential diagnosis of minimal asthma. I explained the plan to start an inhaler to see if symptoms improve further and the importance of consulting a book publisher for a thorough evaluation. We reviewed the general prognosis, noting that her respiratory function shows only minimal deviation from normal, which is promising. The referral to a lung specialist aims to provide a more definitive assessment and management plan. The patient voiced understanding of the treatment approach and the steps moving forward. Orders: Orders Influenza [id number] Immunization 07/11/24 Z23 - Encounter for immunization Referrals Pulmonology Referral R06.00 - Dyspnea, unspecified Medications: New Ventolin HFA 90 mcg/actuation (albuterol sulfate) 2 puffs inhalation Q6H 30 days PRN 8 grams 0RF shortness of breath or wheezing NS Patient Instructions: - Use the prescribed inhaler as directed. - Attend the appointment with the book publisher for further evaluation. - Continue regular exercise as tolerated. - Avoid frequent use of nicotine products. - Monitor for any worsening of respiratory symptoms and seek medical attention if necessary.
[2024-07-11 14:46] VITALS: BP 120/70; BMI 28.8
== END 2024-07-11 15:11 | disposition home or self-care (01) ==
PROVIDERS: PCP Internal Medicine; Visit Provider Internal Medicine
DX: J45.909 Unspecified asthma, uncomplicated (principal)

== ENCOUNTER → 2024-07-11 14:42 | Outpatient (BNVA) | payer OTHER, SELFPAY | PROVIDERS: PCP Internal Medicine; Visit Provider Internal Medicine | DX: J45.909 Unspecified asthma, uncomplicated (principal) | CPT/HCPCS: 90471; 99212 ==

== ENCOUNTER 2024-07-23 13:25 | Outpatient (AMB) | payer OTHER, SELFPAY ==
--- NOTE | 2024-07-23 13:04 | MHC.OFFVIS ---
Vital Signs 07/23/24 13:29 Height 5 ft 7 in Weight 187 lb 2 oz BMI 29.3 BP 108/72 Blood Pressure Location Rt brachial Position Sitting Pulse 91 Pulse Source Pulse Oximeter Pulse Oximetry (%) 99 Oxygen Delivery Method Room Air Intake Visit Reasons: Dyspnea Allergies No Known Allergies Allergy (Verified 07/23/24 13:32) HPI HPI Dyspnea: Details: Sydnee is a pleasant 33 year old female, never tobacco smoker, vapes nicotine occasionally, with underlying asthma and anxiety. She was referred by PCP for pulmonary evaluation. She reports more noticeable dyspnea on exertion, chest tightness and inability to fully inspire. She denies wheezing and cough. She was recently prescribed albuterol MDI and has been using with good effect. She is quite active and notes symptoms prevent her from being more active like engaging in a running regimen. She denies any cardiac history, although does note occasional palpitations. Prior cardiac workup unremarkable. She denies any seasonal allergies. Dog and rabbit, at home , no symptoms with exposure. She denies any h/o childhood asthma, recent PFT suggestive of possible asthma, however did reveal mild restrictive defect which could be related to poor inspiratory effort. She denies second hand smoke exposure as a child. She denies any pertinent family history. She denies any occupational exposures. [facility] Medical History Breast pain, right Palpitations Precordial chest pain Physical exam Surgical History H/O breast augmentation History of cosmetic surgery History of Family History Mother No problems noted. Father Hypertension Social History Housing: Condominium Alcohol intake: current Alcohol intake frequency: a few times a month Alcohol type: hard liquor Patient Tobacco Use Status: Never used Tobacco Tobacco use type: Cigarette e-Cigarette/Vaping Use: Currently Using Second Hand Smoke Exposure: No service: No Current occupational status: employed Current occupational exposures/hazards: No Cognitive needs: No Hearing needs: No Vision needs: Yes Review of Systems Const Denies chills, Denies excessive sweating, Denies fever(s), Denies headache(s) and Denies night sweats Eyes Denies dry eyes, Denies irritation and Denies itchy eyes ENT Reports Normal hearing present, Denies headache(s), Denies nasal congestion, Denies nasal discharge, Denies post nasal drip and Denies sore throat Card Denies chest pain, Denies chest pain at rest, Denies chest pain with activity, Denies claudication, Denies leg edema, Denies orthopnea and Denies paroxysmal nocturnal dyspnea Resp Denies chest congestion, Denies cough, Denies excessive phlegm production, Denies pain on inspiration, Denies pain with cough, Denies stridor and Denies wheezing Musc Denies myalgias Neuro Reports Normal hearing present and Denies headache(s) Endo Denies excessive sweating Adam/Lymph Denies lymphadenopathy Aller/Immun Denies itchy eyes, Denies seasonal rhinorrhea and Denies wheezing Physical Exam Vital Signs: Last Vital Signs Pulse 91 07/23/24 13:29 BP 108/72 07/23/24 13:29 Pulse Ox 99 07/23/24 13:29 Oxygen Delivery Method Room Air 07/23/24 13:29 BMI result Body Mass Index 29.3 Const General: cooperative, healthy appearing, comfortable, no acute distress, well developed and alert Orientation/consciousness: patient oriented x3 Limitations: no limitations HEENT Head: Yes normal to inspection, Yes normocephalic and Yes atraumatic Ears: hearing grossly normal bilaterally and external ears normal Eyes General: appearance normal, both eyes and all related structures Eyelids: Yes eyelids normal Sclerae: sclerae normal EOM: EOMs intact bilaterally Neck Neck: Yes normal visual inspection and Yes no lymphadenopathy Lymphatic: no lymphadenopathy noted Chest Chest palpation & inspection: normal inspection of the chest Resp Effort & Inspection: normal respiratory effort, able to speak in complete sentences, no audible wheezes, no cough, no stridor, not tachypneic, no tripod positioning and no use of accessory muscles Auscultation: clear to auscultation bilaterally Cardio Jugular venous distension: no JVD Rate: regular rate Rhythm: regular rhythm Skin Other: warm, dry General skin exam: no rashes or lesions noted Neuro General: patient oriented x3 Cranial nerves: Yes Normal hearing present Cognition (Neuro): normal cognition Gait exam (Neuro): Normal gait present Extrem General: Yes normal to inspection, Yes capillary refill normal, Yes no clubbing, cyanosis or edema and Yes no pedal edema Psych Appearance: grossly normal and well kempt Speech and movement: Normal speech and movement present and Clear speech present Affect: normal affect Attitude: cooperative Thought process: Normal thought process present Thought content: Normal thought content present Insight: Good insight present (Psych) Judgement: Good judgement present (Psych) Assessment & Plan Assessment & Plan (1) Asthma: Code(s): J45.909 - Unspecified asthma, uncomplicated Category: Medical (2) Dyspnea: Code(s): R06.00 - Dyspnea, unspecified Category: Medical Plan Sydnee's symptoms are likely from underlying asthma. Reviewed PFT which revealed no obstructive ventilatory defects. No significant response to bronchodilators noted. The patient does have a mild restrictive ventilatory defect consistent with mild restrictive lung disease. Diffusing capacity is within normal limits. Will empirically trial Breo, as she reports relief with albuterol. Discussed importance of good oral hygiene to prevent thrush. No recent CXR, will enter CXR given worsening dyspnea and possibly send for chest CT. All questions were answered and patient is in agreement of plan. Will follow up in 6-8 weeks or sooner if needed. Orders: Orders XR chest 2V Today R06.00 - Dyspnea, unspecified Medications: New fluticasone furoate-vilanterol 100-25 mcg/dose (Breo Ellipta) 1 inh inhalation DAILY 60 ea 6RF Coding Level of Care Code New Pt Level 3 (83614) Diagnoses Asthma J45.909 Dyspnea R06.00
[2024-07-23 13:29] VITALS: BP 108/72; PULSE 91; O2SAT 99; BMI 29.3
== END 2024-07-23 13:47 | disposition home or self-care (01) ==
PROVIDERS: PCP Internal Medicine; Referring Provider Internal Medicine; Visit Provider Nurse Practitioner Family
DX: J45.909 Unspecified asthma, uncomplicated (principal); R06.00 Dyspnea, unspecified
CPT/HCPCS: 99203

== ENCOUNTER → 2024-07-23 13:25 | Outpatient (BNVA) | payer OTHER, SELFPAY | PROVIDERS: PCP Internal Medicine; Referring Provider Internal Medicine; Visit Provider Nurse Practitioner Family | DX: J45.909 Unspecified asthma, uncomplicated (principal); R06.00 Dyspnea, unspecified | CPT/HCPCS: 99202 ==

== ENCOUNTER 2025-07-10 08:01 | Outpatient (AMB) | payer OTHER, SELFPAY ==
--- NOTE | 2025-07-10 08:04 | A.OFFPC_ITS ---
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 She reports mild depression with a PHQ-9 score of 3. Symptoms include feeling unmotivated, discouraged, tired, exhausted, and mentally drained, which she notes tends to occur around this time of year. She previously attended therapy but stopped due to scheduling conflicts with work. She has since moved to [place] and expresses a desire to be referred to a therapist there. The patient also reports polyuria, stating that after drinking one glass of water, she may urinate up to five times. She has no known drug allergies and takes no medications. Her last Pap smear was approximately two years ago and was normal. Her tetanus vaccination is up to date, with the last dose in 2019. [facility] Medical History (Updated 07/10/25 @ 08:25 by Columba Park MD) Breast pain, right Palpitations Precordial chest pain Physical exam Surgical History H/O breast augmentation History of cosmetic surgery History of Family History Mother No problems noted. Father Hypertension Social History Housing: Condominium Alcohol intake: current Alcohol intake frequency: a few times a month Alcohol type: hard liquor Patient Tobacco Use Status: Never used Tobacco Tobacco use type: Cigarette e-Cigarette/Vaping Use: Currently Using Second Hand Smoke Exposure: No service: No Current occupational status: employed Current occupational exposures/hazards: No Cognitive needs: No Hearing needs: No Vision needs: No Questionnaire PHQ-9 Over the last 2 weeks, how often have you been bothered by any of the following problems? 1. Little interest or pleasure in doing things: several days 2. Feeling down, depressed, or hopeless: several days 3. Trouble falling or staying asleep, or sleeping too much: not at all 4. Feeling tired or having little energy: several days 5. Poor appetite or overeating: not at all 6. Feeling bad about yourself - or that you are a failure or have let yourself or your family down: not at all 7. Trouble concentrating on things, such as reading the newspaper or watching television: not at all 8. Moving or speaking so slowly that other people could have noticed. Or the opposite - being so fidgety or restless that you have been moving around a lot more than usual: not at all 9. Thoughts that you would be better off or of hurting yourself in some way: not at all Total score: 3 Depression Screening Interpretation: Positive Depression Screening Follow-up: Existing condition and Follow-up Visit Requested Depression Screening Done: Yes 02782 - PHQ-9 Billing: Yes Source: Developed by Drs. Regino Christina, Zena Daily, Boone Chapman and colleagues, with an educational sayda from [employer]. Thrive Questionnaire Date Thrive assessed: 07/10/25 I am a: Patient What is your living situation today?: I have a steady place to live Within the past 12 months, did the food you bought not last and you didn't have the money to get more?: Never true Within the past 12 months, did you worry whether your food would run out before you got money to buy more?: Never true Do you have trouble paying for medicines?: No Do you have trouble getting transportation to medical appointments?: No Do you have trouble paying your heating and electricity bill?: No Do you have trouble taking care of your child, family member or friend?: No Do you have trouble with day-to-day activities such as bathing, preparing meals, shopping, managing finances, etc.?: No Are you currently unemployed and looking for a job?: No Are you interested in more education?: No Please select the resources that you would like help with: None Currently or been in a relationship where the following occur: No concerns reported THRIVE Score: 0 AUDIT C Alcohol Use Questionnaire (AUDIT-C) 1. How often do you have a drink containing alcohol?: 2-4 times a month 2. How many drinks containing alcohol do you have on a typical day when you are drinking?: 3 or 4 3. How often do you have six or more drinks on one occasion?: Less than monthly Total Score: 4 KENDALL-7 AMB Questionnaire KENDALL-7 Date KENDALL - 7 assessed: 12/18/23 Feeling nervous, anxious, or on edge: 1 = Several days Not being able to stop or control worryin = Several days Worrying too much about different things: 1 = Several days Trouble relaxin = More than half the days Being so restless that it is hard to sit still: 0 = Not at all Becoming easily annoyed or irritable: 1 = Several days Feeling afraid as if something awful might happen: 1 = Several days Total KENDALL-7 score (0-4 normal; 5-9 mild; 10-14 moderate; 15-21 severe): 7 Source: Developed by Drs. Regino Christina, Zena Daily, Boone Chapman and colleagues, with an educational sayda from [employer]. KENDALL-7 Assessment Billing KENDALL-7 Assessment Tool: KENDALL-7 Assessment 51365 Review of Systems Const All systems reviewed & are unremarkable except as noted in HPI and below Card Denies chest pain at rest, Denies chest pain with activity, Denies edema, Denies irregular heart rhythm, Denies claudication, Denies dyspnea, Denies dyspnea on exertion, Denies orthopnea, Denies paroxysmal nocturnal dyspnea and Denies slow heart rate Resp Denies cough, Denies dyspnea and Denies dyspnea on exertion Physical exam (Primary Care) Vital Signs: Last Vital Signs Temp 97.8 F 07/10/25 08:05 Pulse 64 07/10/25 08:05 BP 96/60 07/10/25 08:05 Pulse Ox 99 07/10/25 08:05 Oxygen Delivery Method Room Air 07/10/25 08:05 BMI result Body Mass Index 29.6 Tobacco/Smoking Status: Tobacco use Status Tobacco use date assessed 07/10/25 07/10/25 08:13 Patient Tobacco Use Status Never used Tobacco 07/10/25 08:13 Tobacco use type Cigarette 07/10/25 08:13 e-Cigarette/Vaping Use Currently Using 07/10/25 08:13 PHQ-9: PHQ-9 Score PHQ-9: Total score 3 07/10/25 08:14 Depression Screening Interpretation: Positive Depression Screening Follow-up: Existing condition and Follow-up Visit Requested Thrive Assessment: Date of Thrive Assessment Date Thrive assessed 07/10/25 07/10/25 08:13 Currently or been in a relationship where the following occur: No concerns reported Resp Effort & Inspection: normal respiratory effort Auscultation: clear to auscultation bilaterally Cardio Jugular venous distension: no JVD Rate: regular rate Rhythm: regular rhythm Heart sounds: S1 normal heart sound present and S2 normal heart sound present Extrem General: Yes full ROM Office Procedures Flu Questionnaire Does the patient have a severe egg allergy?: No Does the patient have severe life threatening allergies?: No Does the patient have a fever or illness today?: No Has the patient ever had Guillain-[place] Syndrome?: No Has the patient ever had any past reaction to a flu shot?: No Coding Level of Care Code Est Pt Level 3 (13871) Diagnoses Mild recurrent major depression F33.0 KENDALL (generalized anxiety disorder) F41.1 Chronic fatigue R53.82 Additional Codes PHQ-9 - 03885 - PHQ-9 Billing: Yes ([id number]) KENDALL-7 Assessment Billing - KENDALL-7 Assessment Tool: KENDALL-7 Assessment 26630 ([id number]) Time Spent (min) 19 Assessment & Plan Assessment & Plan (1) Mild recurrent major depression: Code(s): F33.0 - Major depressive disorder, recurrent, mild Category: Medical (2) KENDALL (generalized anxiety disorder): Code(s): F41.1 - Generalized anxiety disorder Category: Medical (3) Chronic fatigue: Code(s): R53.82 - Chronic fatigue, unspecified Category: Medical Plan Plan 1. Depression And Anxiety The patient reports mild depression (PHQ-9 of 3) and anxiety, with symptoms of low motivation, feeling discouraged, and mental exhaustion, which may have a seasonal component. A referral will be made for counseling at [facility] on [facility] in [place], as the patient has moved and wishes to resume therapy. 2. Fatigue The patient reports chronic fatigue, which could be multifactorial, possibly related to her mood disorder or a potential vitamin deficiency, such as vitamin D, given the winter season. Laboratory studies will be ordered to evaluate for underlying causes, including a vitamin panel. 3. Polyuria The patient reports frequent urination, which warrants further investigation to rule out conditions such as diabetes mellitus. Blood sugar levels will be checked as part of the laboratory workup. Orders: Orders Vitamin B12 and Folate Today E53.8 - Deficiency of other specified B group vitamins, R53.82 - Chronic fatigue, unspecified Vitamin D 25-OH Total Today E55.9 - Vitamin D deficiency, unspecified, R53.82 - Chronic fatigue, unspecified Thyroid Stimulating Hormone Today R53.82 - Chronic fatigue, unspecified Influenza [id number] Immunization Today Z23 - Encounter for immunization Comprehensive [place]. Panel Fast Today R53.82 - Chronic fatigue, unspecified Complete Blood Count Auto Diff Today R53.82 - Chronic fatigue, unspecified Referrals Counseling Referral F33.0 - Major depressive disorder, recurrent, mild
[2025-07-10 08:05] VITALS: BP 96/60; PULSE 64; TEMP 36.6; O2SAT 99; BMI 29.6
== END 2025-07-10 08:28 | disposition home or self-care (01) ==
LOC: HO.HMCH 08:02
PROVIDERS: PCP Internal Medicine; Visit Provider Internal Medicine
DX: F33.0 Major depressive disorder, recurrent, mild (principal); F41.1 Generalized anxiety disorder; R53.82 Chronic fatigue, unspecified; Z23 Encounter for immunization

== ENCOUNTER → 2025-07-10 08:01 | Outpatient (BNVA) | payer OTHER, SELFPAY | PROVIDERS: PCP Internal Medicine; Visit Provider Internal Medicine | DX: F33.0 Major depressive disorder, recurrent, mild (principal); F41.1 Generalized anxiety disorder; R53.82 Chronic fatigue, unspecified | CPT/HCPCS: 90471; 96127; 99212 ==